=== PATIENT | male | born 1965 | race Caucasian/White ===

== ENCOUNTER 2023-12-09 19:42 | Emergency (ER) | payer BC, OTHER ==
[~2023-12-09] VITALS: Ht 170.2 cm; Wt 81.6 kg
[2023-12-09 20:19] VITALS: TEMP 98.7
[2023-12-09] MEDS ORDERED: TRIA15OI2 TP (20:39)
[2023-12-09] MEDS ORDERED: PERM60CR4 TP (20:39)
[2023-12-09 22:09] VITALS: BP 130/90; O2SAT 99
== END 2023-12-09 22:10 | disposition home or self-care (01) ==
LOC: ER 19:57
DX: B86 Scabies (principal); R21 Rash and other nonspecific skin eruption; I10 Essential (primary) hypertension; Z60.2 Problems related to living alone